=== PATIENT | male | born 1990 | race Caucasian/White ===

== ENCOUNTER 2019-03-04 11:22 | Emergency (ER) | payer SELFPAY ==
[~2019-03-04] VITALS: Ht 188 cm; Wt 113.4 kg
[2019-03-04 11:28] VITALS: Ht 188 cm; Wt 113.4 kg
[2019-03-04 14:48] VITALS: BP 158/83
== END 2019-03-04 14:48 | disposition home or self-care (01) ==
LOC: ED 11:22
DX: M54.41 Lumbago with sciatica, right side (principal)
CPT/HCPCS: J2270; J3010

== ENCOUNTER 2019-06-30 11:57 | Emergency (ER) | payer SELFPAY ==
[~2019-06-30] VITALS: Ht 188 cm; Wt 104.8 kg
[2019-06-30 12:04] VITALS: BP 173/112; Ht 188 cm; Wt 104.8 kg
== END 2019-06-30 13:36 | disposition home or self-care (01) ==
LOC: ED 11:57
DX: A60.01 Herpesviral infection of penis (principal); Z98.890 Other specified postprocedural states
CPT/HCPCS: 87491; 87591